=== PATIENT | male | born 1980 | race Caucasian/White ===

== ENCOUNTER 2021-06-28 09:51 | Outpatient (CLI) | payer OTHER, SELFPAY ==
--- NOTE | ~2021-06-28 | XR_ITS ---
EXAMINATION: XR foot RT min 3V DATE: 06/28/2021 10:10 INDICATION: Right fourth toe pain. TECHNIQUE: 4 views of right foot were obtained. COMPARISON: None. FINDINGS: Bone alignment is normal. No fracture. There is mild osteoarthritis of fourth proximal inte rphalangeal joint and third distal interphalangeal joint. IMPRESSION: 1. Mild polyarticular osteoarthritis. Reviewed, dictated and finalized at location A. ER
== END 2021-06-28 09:52 | disposition home or self-care (01) ==
PROVIDERS: PCP Family Medicine; Visit Provider Family Medicine
DX: M79.671 Pain in right foot (principal); M19.071 Primary osteoarthritis, right ankle and foot
CPT/HCPCS: 73630

== ENCOUNTER 2022-06-11 10:55 | Outpatient (CLI) | payer OTHER, SELFPAY ==
[2022-06-11 14:08] LABS: Kit Draw Collected
== END 2022-06-11 10:56 | disposition home or self-care (01) ==
LOC: ANHGOSHLAB 10:57
PROVIDERS: PCP Family Medicine; Visit Provider Clinical Nurse Specialist
DX: Z13.220 Encounter for screening for lipoid disorders (principal); Z13.228 Encounter for screening for other metabolic disorders
CPT/HCPCS: 36415